=== PATIENT | female | born 1995 | race Caucasian/White ===

== ENCOUNTER 2022-01-19 17:02 | Inpatient (IN) | payer BC ==
[~2022-01-19 17:02] MED LIST: Iopamidol 370 76% 100 ML VIAL ONE
[2022-01-19 18:01] LABS: #Eosinphils 0.1 10x3/uL (0.0-0.5); #Monocytes 0.4 10x3/uL (0.0-1.1); #Neutrophils 6.6 10x3/uL (1.5-8.4); %Basophils 0.4 % (0.0-2.0); %Eosinophils 1.5 % (0.0-6.0); %Lymphocytes 10.4 % (18.0-47.0); %Monocytes 5.1 % (0.0-10.0); %Neutrophils 82.2 % (40.0-75.0); ALT (SGPT) 39 U/L (8-55); AST (SGOT) 19 U/L (5-34); Albumin 4.5 g/dL (3.5-5.0); Alkaline Phosphatase 77 U/L (40-110); Anion Gap 14 mmol/L (10-20); BUN (Urea Nitrogen) 11 mg/dL (7.0-18.7); Bilirubin, Total 0.7 mg/dL (0.2-1.2); Calc. Creatinine Clearance 0 mL/min (70-130); Carbon Dioxide 20 mmol/L (22-29); Chloride 105 mmol/L (98-107); Estimated GFR 92; Globulin 3.5 g/dL (2.4-3.5); Glucose 146 mg/dL (70-105); Hemoglobin 14.6 g/dL (12.0-15.5); Mean Corpuscular HGB CONC 34.8 g/dL (32.0-36.0); Mean Corpuscular Hemoglobin 30.5 pg (27.0-33.0); Mean Corpuscular Volume 87.7 fl (81.6-98.3); Mean Platelet Volume 10.1 fl (7.4-10.4); Platelet Count 304 10x3/uL (150-450); Potassium 3.7 mmol/L (3.5-5.1); Red Blood Cell (RBC) Count 4.78 10x6/uL (3.90-5.03); Sodium 135 mmol/L (136-145)
[2022-01-19 18:14] LABS: SARS-CoV-2 NAA Rapid Test Not Detected (NotDetected)
[2022-01-19] MEDS ORDERED: Ketorolac Tromethamine 30 MG/ML VIAL ONE (18:30)
[2022-01-19] MEDS ORDERED: Lorazepam 2 MG/ML VIAL ONE (18:31)
[2022-01-19 18:52] LABS: BHCG - Serum Negative (NEGATIVE); Pregs Control Background? CLEAR/WHITE (CLR/WHITE); Pregs Control Bar Appear? YES (CONTROL BAR)
[2022-01-19 20:08] LABS: Bilirubin Neg (Negative); Blood, Urine 25 (Negative); Clarity Cloudy (Clear); Glucose, Urine (Dipstick) Normal (Negative); Ketone, Urine 5 mg/dL (Negative); Leukocyte 500 (Negative); Nitrite Negative (Negative); Protein, Urine (Dipstick) 15 mg/dl (Neg-Trace); Specific Gravity, Urine 1.015 (1.005-1.030); Urobilinogen Normal mg/dL (Less than 2)
[2022-01-19 20:18] LABS: Bacteria/HPF 1+ HPF (None Seen); Mucous/LPF 4+ LPF (<2+); RBC/HPF 0-3 HPF (0-3)
[2022-01-19] MEDS ORDERED: Enoxaparin Sodium 100 MG/ML SYRINGE SC SCH (21:00)
[2022-01-19] MEDS ORDERED: Enoxaparin Sodium 40 MG/0.4 ML SYRINGE SC SCH (21:00)
[2022-01-19] MEDS ORDERED: Acetaminophen 325 MG TAB PO PRN (21:15)
[2022-01-19] MEDS ORDERED: Ondansetron PF 4 MG/2 ML Vial IVP PRN (21:15)
[2022-01-19] MEDS ORDERED: Ondansetron ODT 4 MG TAB PO PRN (21:15)
[2022-01-19] MEDS ORDERED: Enoxaparin Sodium 40 MG/0.4 ML SYRINGE ONE (21:17)
[2022-01-19] MEDS ORDERED: Enoxaparin Sodium 100 MG/ML SYRINGE ONE (21:17)
[2022-01-19] MEDS ORDERED: Metoprolol Tartrate 25 MG TAB PO SCH (21:30)
[2022-01-19 21:38] LABS: Magnesium 1.7 mg/dL (1.6-2.6)
[2022-01-19] MEDS ORDERED: Acetaminophen 500 MG TAB ONE (22:52)
[2022-01-20] MEDS ORDERED: Magnesium Oxide 400 MG TAB PO SCH (01:15)
[2022-01-20 03:31] LABS: #Monocytes 0.5 10x3/uL (0.0-1.1); #Neutrophils 4.8 10x3/uL (1.5-8.4); %Basophils 0.3 % (0.0-2.0); %Eosinophils 0.4 % (0.0-6.0); %Lymphocytes 22.9 % (18.0-47.0); %Monocytes 7.1 % (0.0-10.0); Hemoglobin 12.5 g/dL (12.0-15.5); Mean Corpuscular HGB CONC 34.4 g/dL (32.0-36.0); Mean Corpuscular Hemoglobin 30.4 pg (27.0-33.0); Mean Corpuscular Volume 88.3 fl (81.6-98.3); Mean Platelet Volume 9.8 fl (7.4-10.4); Platelet Count 260 10x3/uL (150-450); RBC Distribution Width 12.2 % (11.5-14.5); Red Blood Cell (RBC) Count 4.11 10x6/uL (3.90-5.03)
[2022-01-20 03:42] LABS: PTT 35.4 sec (22.0-33.0); Prothrombin Time 10.7 sec (9.5-12.1)
[2022-01-20 03:49] LABS: Anion Gap 13 mmol/L (10-20); BUN (Urea Nitrogen) 12 mg/dL (7.0-18.7); Calc. Creatinine Clearance 0 mL/min (70-130); Calcium 7.9 mg/dL (7.8-10.44); Carbon Dioxide 19 mmol/L (22-29); Chloride 108 mmol/L (98-107); Estimated GFR 114; Glucose 127 mg/dL (70-105); Potassium 3.3 mmol/L (3.5-5.1); Sodium 137 mmol/L (136-145)
[2022-01-20] MEDS ORDERED: Potassium Chloride 20 MEQ TAB PO SCH (05:30)
[2022-01-20] MEDS ORDERED: Potassium Chloride 20 MEQ TAB ONE (06:03)
[2022-01-20] MEDS: FLUoxetine HCl 20 MG CAP PO SCH (08:45)
[2022-01-20 08:58] LABS: Phosphorus 3.2 mg/dL (2.3-4.7)
[2022-01-20] MEDS ORDERED: Enoxaparin Sodium 100 MG/ML SYRINGE SC SCH (09:00)
[2022-01-20] MEDS ORDERED: Enoxaparin Sodium 40 MG/0.4 ML SYRINGE SC SCH (09:00)
[2022-01-20] MEDS ORDERED: Magnesium 2 GM/50 ML(in water) 2 GM in Premix Bag 1 BAG IVPB SCH (09:00)
[2022-01-20] MEDS ORDERED: Magnesium 2 GM/50 ML BAG (IN WATER) ONE (10:02)
[2022-01-20] MEDS ORDERED: cefTRIAXone\\ROCEPHIN 1 GM VIAL ONE (10:02)
[2022-01-20] MEDS ORDERED: Famotidine 20 MG TAB ONE (10:04)
[2022-01-20] MEDS: cefTRIAXone\\ROCEPHIN 1 GM in Sodium Chloride 0.9% 100 ML IVPB SCH (11:00)
[2022-01-20] MEDS: Famotidine 20 MG TAB PO SCH ×2 (12:32→21:34)
[2022-01-20] MEDS: Enoxaparin Sodium 120 MG/0.8 ML SYRINGE SC SCH (13:30)
[2022-01-20] MEDS ORDERED: Enoxaparin Sodium 120 MG/0.8 ML SYRINGE SC SCH (21:00)
[2022-01-20] MEDS: Lisinopril 10 MG TAB PO SCH (21:34)
[2022-01-20] MEDS: hydrALAZINE 25 MG TAB PO SCH (21:35)
[2022-01-21] MEDS: Enoxaparin Sodium 120 MG/0.8 ML SYRINGE SC SCH (02:05)
[2022-01-21 04:09] LABS: #Eosinphils 0.2 10x3/uL (0.0-0.5); #Monocytes 0.7 10x3/uL (0.0-1.1); #Neutrophils 2.5 10x3/uL (1.5-8.4); %Basophils 0.5 % (0.0-2.0); %Eosinophils 3.8 % (0.0-6.0); %Lymphocytes 41.2 % (18.0-47.0); %Monocytes 11.5 % (0.0-10.0); %Neutrophils 42.7 % (40.0-75.0); Hemoglobin 12.5 g/dL (12.0-15.5); Mean Corpuscular HGB CONC 34.1 g/dL (32.0-36.0); Mean Corpuscular Hemoglobin 30.3 pg (27.0-33.0); Mean Corpuscular Volume 89.1 fl (81.6-98.3); Platelet Count 252 10x3/uL (150-450); RBC Distribution Width 12.2 % (11.5-14.5); Red Blood Cell (RBC) Count 4.12 10x6/uL (3.90-5.03); White Blood Cell (WBC) Count 5.8 10x3/uL (3.5-10.5)
[2022-01-21 04:20] LABS: ALT (SGPT) 40 U/L (8-55); AST (SGOT) 23 U/L (5-34); Albumin 3.7 g/dL (3.5-5.0); Alkaline Phosphatase 56 U/L (40-110); Anion Gap 10 mmol/L (10-20); BUN (Urea Nitrogen) 9 mg/dL (7.0-18.7); Bilirubin, Total 0.3 mg/dL (0.2-1.2); Calc. Creatinine Clearance 232 mL/min (70-130); Calcium 8.3 mg/dL (7.8-10.44); Carbon Dioxide 23 mmol/L (22-29); Chloride 108 mmol/L (98-107); Estimated GFR 116; Globulin 2.8 g/dL (2.4-3.5); Glucose 113 mg/dL (70-105); Magnesium 2.2 mg/dL (1.6-2.6); Protein, Total 6.5 g/dL (6.0-8.3); Sodium 137 mmol/L (136-145)
[2022-01-21] MEDS: FLUoxetine HCl 20 MG CAP PO SCH (10:21)
[2022-01-21] MEDS: Famotidine 20 MG TAB PO SCH (10:21)
[2022-01-21] MEDS: hydrALAZINE 25 MG TAB PO SCH (10:21)
[2022-01-21] MEDS: Lisinopril 10 MG TAB PO SCH (10:23)
[2022-01-21] MEDS: cefTRIAXone\\ROCEPHIN 1 GM in Sodium Chloride 0.9% 100 ML IVPB SCH (11:44)
[2022-01-21 12:42] VITALS: BMI 47.2
[2022-01-21 16:21] VITALS: BP 121/84; TEMP 97.4
[2022-01-21] MEDS ORDERED: Apixaban 5 MG TAB PO SCH (17:00)
[2022-01-21 19:56] LABS: INR-International Normal Ratio 0.9; PTT 34.6 sec (22.9-36.1); Prothrombin Time 12.7 sec (12.0-14.7)
[2022-01-22] MEDS ORDERED: Apixaban 5 MG TAB PO SCH (08:00)
[2022-01-23 14:03] LABS: Cardiolipin IgA Ab 4.2 APL-U/mL (<14 Negative); Cardiolipin IgG Ab 1.4 GPL-U/mL (<10 Negative); Cardiolipin IgM Ab 0.9 MPL-U/mL (<10 Negative); EliA APS New Method **** NEW METHOD ****; beta-2-Glycoprotein I IgA Ab 1.7 U/mL (<7 Negative); beta-2-Glycoprotein I IgG Ab 1.4 U/mL (<7 Negative); beta-2-Glycoprotein I IgM Abs Less than 2.9 U/mL (<7 Negative)
[2022-01-28] MEDS ORDERED: Apixaban 5 MG TAB PO SCH (20:00)
== END 2022-01-21 17:40 | disposition home or self-care (01) | DRG 176 ==
LOC: CSHERS 17:02 → CSHERHOLD 23:37 → CSHTELE 01-20 16:41
PROVIDERS: ADMIT Family Medicine; ATTEND Internal Medicine
DX: I26.99 Other pulmonary embolism without acute cor pulmonale (principal); Z68.42 Body mass index [BMI] 45.0-49.9, adult; N39.0 Urinary tract infection, site not specified; J06.9 Acute upper respiratory infection, unspecified; I10 Essential (primary) hypertension; E66.9 Obesity, unspecified; F41.9 Anxiety disorder, unspecified; Z20.822 Contact with and (suspected) exposure to COVID-19; Z88.1 Allergy status to other antibiotic agents; Z79.899 Other long term (current) drug therapy; Z98.890 Other specified postprocedural states; Z83.3 Family history of diabetes mellitus; Z82.49 Family history of ischemic heart disease and other diseases of the circulatory system; Z88.8 Allergy status to other drugs, medicaments and biological substances
CPT/HCPCS: 36415; 70491; 71045; 71275; 80048; 80053; 81003; 81015; 81241; 83605; 83735; 84100; 84145; 84443; 84484; 84703; 85025; 85240; 85250; 85300; 85303; 85305; 85598; 85610; 85613; 85730; 86146; 86147; 87040; 87081; 87086; 87430; 93005; 93306; 93970; J0696; J1650; J1885; J2060; J3475; J3490; Q9967

== ENCOUNTER 2022-02-18 09:43 | Observation (INO) | payer BC ==
[2022-02-18 10:25] LABS: #Eosinphils 0.1 10x3/uL (0.0-0.5); #Monocytes 0.4 10x3/uL (0.0-1.1); #Neutrophils 5.2 10x3/uL (1.5-8.4); %Basophils 0.5 % (0.0-2.0); %Eosinophils 0.8 % (0.0-6.0); %Lymphocytes 12.7 % (18.0-47.0); %Monocytes 6.2 % (0.0-10.0); %Neutrophils 79.5 % (40.0-75.0); Hemoglobin 13.3 g/dL (12.0-15.5); Mean Corpuscular HGB CONC 33.8 g/dL (32.0-36.0); Mean Corpuscular Volume 88.5 fl (81.6-98.3); Mean Platelet Volume 9.8 fl (7.4-10.4); Platelet Count 237 10x3/uL (150-450); RBC Distribution Width 12.5 % (11.5-14.5); Red Blood Cell (RBC) Count 4.44 10x6/uL (3.90-5.03); White Blood Cell (WBC) Count 6.6 10x3/uL (3.5-10.5)
[2022-02-18 10:45] LABS: ALT (SGPT) 46 U/L (8-55); AST (SGOT) 24 U/L (5-34); Albumin 4.5 g/dL (3.5-5.0); Alkaline Phosphatase 67 U/L (40-110); Anion Gap 14 mmol/L (10-20); BUN (Urea Nitrogen) 10 mg/dL (7.0-18.7); Bilirubin, Total 0.6 mg/dL (0.2-1.2); Calc. Creatinine Clearance 0 mL/min (70-130); Carbon Dioxide 20 mmol/L (22-29); Chloride 106 mmol/L (98-107); Estimated GFR 89; Glucose 126 mg/dL (70-105); Lipase 17 U/L (8-78); Potassium 3.8 mmol/L (3.5-5.1); Protein, Total 7.5 g/dL (6.0-8.3); Sodium 136 mmol/L (136-145)
[2022-02-18 10:55] LABS: BHCG - Serum Negative (NEGATIVE); Pregs Control Background? CLEAR/WHITE (CLR/WHITE); Pregs Control Bar Appear? YES (CONTROL BAR)
[2022-02-18] MEDS ORDERED: Acetaminophen 500 MG TAB ONE (10:55)
[2022-02-18 11:32] LABS: SARS-CoV-2 NAA Rapid Test Not Detected (NotDetected)
[2022-02-18 11:42] LABS: Bilirubin Neg (Negative); Blood, Urine 10 (Negative); Clarity Clear (Clear); Glucose, Urine (Dipstick) Normal (Negative); Ketone, Urine Negative (Negative); Leukocyte 25 (Negative); Nitrite Negative (Negative); Protein, Urine (Dipstick) Negative (Neg-Trace); Specific Gravity, Urine 1.015 (1.005-1.030); Urobilinogen Normal mg/dL (Less than 2)
[2022-02-18 11:54] LABS: Bacteria/HPF Rare-Few HPF (None Seen); RBC/HPF 0-3 HPF (0-3); Squamous Epithelial 0-3 HPF (0-3); WBC/HPF 0-3 HPF (0-3)
[2022-02-18] MEDS ORDERED: Ondansetron PF 4 MG/2 ML Vial IVP PRN (14:13)
[2022-02-18] MEDS ORDERED: Ondansetron ODT 4 MG TAB PO PRN (14:13)
[2022-02-18 15:55] VITALS: BMI 47.7
[2022-02-18] MEDS: Sodium Chloride 0.9% 1,000 ML IV SCH (16:23)
[2022-02-18] MEDS: Acetaminophen 325 MG TAB PO PRN ×2 (16:24→20:32)
[2022-02-18] MEDS ORDERED: VANCOMYCIN 2 GRAM/400 ML BAG 2 GM in Premix Bag 1 BAG IVPB SCH (16:30)
[2022-02-18] MEDS ORDERED: Cepastat Lozenges 1 LOZ PO PRN (17:59)
[2022-02-18] MEDS: Lisinopril 10 MG TAB PO SCH (20:31)
[2022-02-18] MEDS: hydrALAZINE 25 MG TAB PO SCH (20:31)
[2022-02-18] MEDS: Famotidine 20 MG TAB PO SCH (20:31)
[2022-02-18] MEDS: Apixaban 5 MG TAB PO SCH (20:31)
[2022-02-18] MEDS: Cefepime 1 GM in Sodium Chloride 0.9% 100 ML IVPB SCH (20:32)
[2022-02-19] MEDS: Acetaminophen 325 MG TAB PO PRN ×3 (01:18→20:33)
[2022-02-19] MEDS: VANCOMYCIN 1.25 GM/250 ML BAG 1.25 GM in Premix Bag 1 BAG IVPB SCH ×3 (01:35→18:08)
[2022-02-19 04:55] LABS: Anion Gap 13 mmol/L (10-20); BUN (Urea Nitrogen) 7 mg/dL (7.0-18.7); Calc. Creatinine Clearance 246 mL/min (70-130); Calcium 8.2 mg/dL (7.8-10.44); Carbon Dioxide 18 mmol/L (22-29); Chloride 110 mmol/L (98-107); Estimated GFR 110; Glucose 104 mg/dL (70-105); Potassium 3.3 mmol/L (3.5-5.1); Sodium 138 mmol/L (136-145)
[2022-02-19 05:01] LABS: #Monocytes 0.7 10x3/uL (0.0-1.1); #Neutrophils 5.2 10x3/uL (1.5-8.4); %Basophils 0.3 % (0.0-2.0); %Eosinophils 0.3 % (0.0-6.0); %Lymphocytes 21.7 % (18.0-47.0); %Monocytes 9.2 % (0.0-10.0); %Neutrophils 68.2 % (40.0-75.0); Hemoglobin 11.7 g/dL (12.0-15.5); Mean Corpuscular HGB CONC 33.8 g/dL (32.0-36.0); Mean Corpuscular Hemoglobin 30.2 pg (27.0-33.0); Mean Corpuscular Volume 89.2 fl (81.6-98.3); Mean Platelet Volume 10.3 fl (7.4-10.4); Platelet Count 206 10x3/uL (150-450); RBC Distribution Width 12.9 % (11.5-14.5); Red Blood Cell (RBC) Count 3.88 10x6/uL (3.90-5.03); White Blood Cell (WBC) Count 7.6 10x3/uL (3.5-10.5)
[2022-02-19] MEDS: Sodium Chloride 0.9% 1,000 ML IV SCH ×2 (05:26→17:00)
[2022-02-19] MEDS ORDERED: Potassium Chloride 20 MEQ TAB PO SCH (08:00)
[2022-02-19] MEDS: Famotidine 20 MG TAB PO SCH ×2 (08:28→20:31)
[2022-02-19] MEDS: hydrALAZINE 25 MG TAB PO SCH ×2 (08:28→20:31)
[2022-02-19] MEDS: Lisinopril 10 MG TAB PO SCH ×2 (08:28→20:31)
[2022-02-19] MEDS: Apixaban 5 MG TAB PO SCH ×2 (08:28→20:33)
[2022-02-19] MEDS: FLUoxetine HCl 20 MG CAP PO SCH (08:28)
[2022-02-19] MEDS: Cefepime 1 GM in Sodium Chloride 0.9% 100 ML IVPB SCH ×2 (08:29→20:32)
[2022-02-20] MEDS: VANCOMYCIN 1.25 GM/250 ML BAG 1.25 GM in Premix Bag 1 BAG IVPB SCH ×2 (02:38→09:50)
[2022-02-20 04:47] LABS: Anion Gap 12 mmol/L (10-20); BUN (Urea Nitrogen) 8 mg/dL (7.0-18.7); Calc. Creatinine Clearance 249 mL/min (70-130); Calcium 8.4 mg/dL (7.8-10.44); Carbon Dioxide 20 mmol/L (22-29); Chloride 110 mmol/L (98-107); Estimated GFR 112; Glucose 108 mg/dL (70-105); Potassium 3.8 mmol/L (3.5-5.1); Sodium 138 mmol/L (136-145)
[2022-02-20 04:52] LABS: #Eosinphils 0.3 10x3/uL (0.0-0.5); #Monocytes 0.6 10x3/uL (0.0-1.1); %Basophils 0.5 % (0.0-2.0); %Eosinophils 4.1 % (0.0-6.0); %Lymphocytes 35.7 % (18.0-47.0); %Neutrophils 49.4 % (40.0-75.0); Hemoglobin 11.2 g/dL (12.0-15.5); Mean Corpuscular Hemoglobin 29.9 pg (27.0-33.0); Mean Corpuscular Volume 90.4 fl (81.6-98.3); Mean Platelet Volume 10.6 fl (7.4-10.4); Platelet Count 206 10x3/uL (150-450); RBC Distribution Width 13.1 % (11.5-14.5); Red Blood Cell (RBC) Count 3.75 10x6/uL (3.90-5.03); White Blood Cell (WBC) Count 6.1 10x3/uL (3.5-10.5)
[2022-02-20] MEDS: Lisinopril 10 MG TAB PO SCH (09:25)
[2022-02-20] MEDS: Famotidine 20 MG TAB PO SCH (09:25)
[2022-02-20] MEDS: Apixaban 5 MG TAB PO SCH (09:25)
[2022-02-20] MEDS: FLUoxetine HCl 20 MG CAP PO SCH (09:25)
[2022-02-20] MEDS: hydrALAZINE 25 MG TAB PO SCH (09:26)
[2022-02-20] MEDS: Sodium Chloride 0.9% 1,000 ML IV SCH (09:34)
[2022-02-20] MEDS: Cefepime 1 GM in Sodium Chloride 0.9% 100 ML IVPB SCH ×2 (09:37→09:46)
[2022-02-20] MEDS ORDERED: Azithromycin 250 MG TAB PO SCH (11:15)
[2022-02-20] MEDS ORDERED: valACYclovir 500 MG TAB PO SCH ×2 (11:15→21:00)
[2022-02-20 11:20] LABS: ALT (SGPT) 48 U/L (8-55); AST (SGOT) 25 U/L (5-34); Albumin 4.1 g/dL (3.5-5.0); Alkaline Phosphatase 52 U/L (40-110); Bilirubin, Direct 0.1 mg/dL (0.1-0.3); Bilirubin, Total 0.3 mg/dL (0.2-1.2); Protein, Total 7.1 g/dL (6.0-8.3)
[2022-02-20 11:37] LABS: Syphilis Antibody Nonreactive (Nonreactive); Syphilis Antibody Index 0.07 S/CO (<1.00 Non-Reactive)
[2022-02-20 11:38] LABS: HIV (1/2) Antibody/Antigen Non-Reactive (NonReactive); HIV 1/2 INDEX 0.06 S/CO (<1.00)
[2022-02-20 12:40] VITALS: BP 124/70; TEMP 97.8
[2022-02-21] MEDS ORDERED: Azithromycin 250 MG TAB PO SCH (09:00)
[2022-02-21 13:16] LABS: Chlam.trachomatis by PCR,Urine Not Detected (NotDetected)
[2022-02-21 15:16] LABS: EBV VCA IgM <36.0 U/mL (0.0-35.9); Nuclear AG IgG (EBNA) AB >600.0 U/mL (0.0-17.9)
[2022-02-22 14:38] LABS: CMV DNA-PCR Test Negative (Negative)
[2022-02-24 23:12] LABS: HSV 1 - DNA Negative (Negative); HSV 2 - DNA Negative (Negative)
== END 2022-02-20 15:20 | disposition home or self-care (01) ==
LOC: CSHERS 09:43 → CSHTELE 13:50
PROVIDERS: ADMIT Internal Medicine; ATTEND Family Medicine
DX: A41.9 Sepsis, unspecified organism (principal); R50.9 Fever, unspecified; E86.0 Dehydration; R00.0 Tachycardia, unspecified; I10 Essential (primary) hypertension; J02.9 Acute pharyngitis, unspecified; R21 Rash and other nonspecific skin eruption; Z20.822 Contact with and (suspected) exposure to COVID-19; E66.01 Morbid (severe) obesity due to excess calories; Z68.42 Body mass index [BMI] 45.0-49.9, adult; Z86.711 Personal history of pulmonary embolism; Z79.01 Long term (current) use of anticoagulants; Z79.899 Other long term (current) drug therapy; Z88.1 Allergy status to other antibiotic agents; Z88.8 Allergy status to other drugs, medicaments and biological substances
CPT/HCPCS: 36415; 71045; 71275; 80048; 80053; 80076; 80202; 81003; 81015; 83605; 83690; 83880; 84443; 84484; 84703; 85025; 86664; 86665; 86780; 87040; 87081; 87252; 87389; 87430; 87491; 87497; 87529; 87591; 87633; 87798; 93005; 94760; 96360; 96361; 96365; 96366; 96367; 96376; G0378; J0692; J3370; J3490; J7050; Q9967